=== PATIENT | female | born 1955 | race Caucasian/White ===

== ENCOUNTER 2017-06-26 16:52 | Emergency (ER) | payer OTHER ==
[~2017-06-26] VITALS: Ht 162.6 cm; Wt 122.5 kg
[~2017-06-26 16:52] MED LIST: ACETAMINOPHEN325 M1 PO; ASPIRIN325 PO; ATORVASTATIN CA20 MG PO; BROVANA15 MCG/2 M INH; CARDIZEM CD240 MG PO; CIPRO250 M1 PO; CITRATE OF MAG296 ML PO; DIOVAN40 MG PO; DUONEB 2.5-0.5 M3 ML INH; FISH OIL 1,2001 EAC4 PO; FLUZONE 2045 MCG/011; FUROSEMIDE 40 M40 M1 PO; HYDRALAZINE 10M10 MG PO; HYDROCODONE-AP1 EAC6 PO; HYDROXYZINE HCL25 M2 PO; KLOR-CON 1010 MEQ PO; LASIX 20 MG TAB20 MG PO; LASIX 80 MG TAB80 MG PO; LIPITOR 20 MG T20 M1; LIPITOR 20 MG T20 M1 PO; LISINOPRIL20 MG PO; LOPRESSOR25 PO; LOPRESSOR50 PO; MOBIC15 MG PO; NAPROSYN500 MG PO; NYQUIL D COLD295 ML PO; PEPCID20 MG PO; PLAVIX 300 MG300 MG PO; PNEUMOVAX25 MCG/0.5; POTASSIUM20 PO; PREDNISONE 20 M20 M1 PO; PULMICORT0.5 MG/22 INH; SINGULAIR 10 MG10 M1 PO; TOPROL XL25 MG PO; TOPROL XL50 MG PO; VERAPAMIL E.R240 M1 PO
[2017-06-26] MEDS ORDERED: SULFAMETHOXAZO1 EAC1 PO (16:59)
[2017-06-26] MEDS ORDERED: TOPROL XL100 MG PO (16:59)
[2017-06-26] MEDS ORDERED: CYCLOBENZAPRINE5 MG PO (19:04)
[2017-06-26] MEDS ORDERED: NORCO 5-325 TA1 EACH PO (19:04)
[2017-06-26 19:19] VITALS: BP 133/62
== END 2017-06-26 19:20 | disposition home or self-care (01) ==
LOC: M.ERS 16:52
DX: S20.212A Contusion of left front wall of thorax, initial encounter (principal); J44.9 Chronic obstructive pulmonary disease, unspecified; I10 Essential (primary) hypertension; E78.5 Hyperlipidemia, unspecified; I25.2 Old myocardial infarction; F17.210 Nicotine dependence, cigarettes, uncomplicated; Z88.1 Allergy status to other antibiotic agents; Z88.8 Allergy status to other drugs, medicaments and biological substances; V89.0XXA Person injured in unspecified motor-vehicle accident, nontraffic, initial encounter; Y93.89 Activity, other specified; Y92.89 Other specified places as the place of occurrence of the external cause; Y99.8 Other external cause status

== ENCOUNTER 2017-07-03 23:52 | Emergency (ER) | payer OTHER ==
[~2017-07-03] VITALS: Ht 162.6 cm; Wt 125.7 kg
[~2017-07-03 23:52] MED LIST changes: +CYCLOBENZAPRINE5 MG PO; +NORCO 5-325 TA1 EACH PO; +SULFAMETHOXAZO1 EAC1 PO; +TOPROL XL100 MG PO
[2017-07-04] MEDS ORDERED: HYDROCODONE-AP1 EAC6 PO (00:12)
[2017-07-04] MEDS ORDERED: CYCLOBENZAPRINE5 MG PO (00:12)
[2017-07-04] MEDS ORDERED: VOLTAREN GEL 1100 G2 TOP (00:12)
[2017-07-04 00:29] VITALS: BP 119/71
--- NOTE | 2017-07-04 14:38 | EKG ---
[place] [address] ELECTROCARDIOGRAM REPORT Name: DANNI POWERS Room: [facility]#: [id number] Admission: 07/03/17 Attend Phys: Discharge: 07/04/17 Date of : 55 Report #: [id number] THIS REPORT FOR: //name// [facility] ED Test Date: 2017-07-03 Test Time: 23:58:16 Pat Name: DANNI POWERS Department: Room: Gender: F Emergency Department Clinician: MATIAS : 1955 Requested By: Idania Chambers Order Number: [id number] Reading MD: Sonido Wells Measurements Intervals [place] Rate: 63 P: -22 MA: 169 QRS: 26 QRSD: 91 T: 51 QT: 389 QTc: 399 Interpretive Statements Sinus rhythm Anterior infarct, old, possible Baseline wander in lead(s) II Compared to ECG 03/03/2016 17:09:37 Myocardial infarct finding now present Atrial premature complex(es) no longer present Poor R-wave progression no longer present Electronically Signed On 07-04-2017 14:38:06 CDT by Sonido Wells [email or web address] <ELECTRONICALLY SIGNED> By: Sonido Wells MD, FACC 07/04/17 1438 [id number] [id number] Sonido Wells MD, [facility] /EPI
== END 2017-07-04 00:55 | disposition home or self-care (01) ==
LOC: M.ERS 23:52
DX: S29.012A Strain of muscle and tendon of back wall of thorax, initial encounter (principal); J44.9 Chronic obstructive pulmonary disease, unspecified; E78.5 Hyperlipidemia, unspecified; I10 Essential (primary) hypertension; I25.2 Old myocardial infarction; Z88.1 Allergy status to other antibiotic agents; Z88.8 Allergy status to other drugs, medicaments and biological substances; V89.2XXA Person injured in unspecified motor-vehicle accident, traffic, initial encounter; Y93.89 Activity, other specified; Y92.89 Other specified places as the place of occurrence of the external cause; Y99.8 Other external cause status

== ENCOUNTER 2019-02-28 18:23 | Emergency (ER) | payer OTHER ==
[~2019-02-28] VITALS: Ht 160 cm; Wt 123.4 kg
[~2019-02-28 18:23] MED LIST changes: +VOLTAREN GEL 1100 G2 TOP
[2019-02-28 20:12] VITALS: BP 146/78
== END 2019-02-28 20:14 | disposition home or self-care (01) ==
LOC: M.ERS 18:23
DX: S63.8X1A Sprain of other part of right wrist and hand, initial encounter (principal); J44.9 Chronic obstructive pulmonary disease, unspecified; E78.5 Hyperlipidemia, unspecified; I10 Essential (primary) hypertension; F17.210 Nicotine dependence, cigarettes, uncomplicated; Z90.710 Acquired absence of both cervix and uterus; Z98.51 Tubal ligation status; E66.9 Obesity, unspecified; Z68.42 Body mass index [BMI] 45.0-49.9, adult; Z88.1 Allergy status to other antibiotic agents; Z91.040 Latex allergy status; Z88.8 Allergy status to other drugs, medicaments and biological substances; W18.39XA Other fall on same level, initial encounter; Y93.89 Activity, other specified; Y92.89 Other specified places as the place of occurrence of the external cause; Y99.8 Other external cause status

== ENCOUNTER 2020-08-01 19:53 | Emergency (ER) | payer MEDICARE ==
[~2020-08-01] VITALS: Ht 165.1 cm; Wt 113.4 kg
[2020-08-01] MEDS ORDERED: PREDNISONE50 MG PO (21:10)
[2020-08-01] MEDS ORDERED: PROAIR HFA8.5 GM INH (21:10)
[2020-08-01 21:20] VITALS: BP 199/93
== END 2020-08-01 21:20 | disposition home or self-care (01) ==
LOC: M.ERS 19:53
DX: J44.1 Chronic obstructive pulmonary disease with (acute) exacerbation (principal); Z20.822 Contact with and (suspected) exposure to COVID-19; I10 Essential (primary) hypertension; E66.9 Obesity, unspecified; I25.2 Old myocardial infarction; F17.210 Nicotine dependence, cigarettes, uncomplicated; Z88.1 Allergy status to other antibiotic agents; Z91.040 Latex allergy status; Z79.82 Long term (current) use of aspirin; Z79.899 Other long term (current) drug therapy; Z98.890 Other specified postprocedural states

== ENCOUNTER → 2020-09-07 | Outpatient (CLI) | payer MEDICARE, BC ==
[~2020-09-07] MED LIST changes: +PREDNISONE50 MG PO; +PROAIR HFA8.5 GM INH
== END ==
LOC: M.RAD 10:45
PROVIDERS: ATTEND Internal Medicine
DX: Z12.31 Encounter for screening mammogram for malignant neoplasm of breast (principal); N64.89 Other specified disorders of breast

== ENCOUNTER → 2020-09-17 | Outpatient (CLI) | payer MEDICARE, BC | LOC: M.RAD 09-11 09:33 | PROVIDERS: ATTEND Internal Medicine | DX: N65.0 Deformity of reconstructed breast (principal); R92.8 Other abnormal and inconclusive findings on diagnostic imaging of breast ==

== ENCOUNTER → 2020-09-26 | Outpatient (CLI) | payer MEDICARE, BC ==
--- NOTE | 2020-09-28 11:08 | PATH ---
[address] [address] PATHOLOGY RPT PROCEDURE Name: DANNI PORTILLO Room: [facility]#: [id number] Admission: 09/26/20 Date of : 55 Discharge: Report #: [id number] Path Case #: [id number] [facility] Accession Number: [id number] . 01 Material submitted: . PART A: breast - LEFT BREAST MASS 2 OCLOCK 8CFN. Modifiers: left, 2:00, 8CFN PART B: breast - LEFT BREAST MASS 2 OCLOCK 8CFN. Modifiers: left, 2:00, 8CFN . 01 Clinical history: . LEFT BREAST MASS 2:00 8CFN 1.4 X 1.0 X 0.87 CM . 02 Diagnosis: A. Breast "left mass 2:00 8 cm from nipple", needle biopsy: - Fibrocystic changes including areas of fibrosis, usual ductal hyperplasia, adenosis, and cyst formation. - Intraluminal microcalcification. - Focal fat necrosis. - Negative for atypia and malignancy. . B. Breast "left mass 2:00 8 cm from nipple": - Minute fragments of benign breast tissue. - Negative for atypia and malignancy. (MLK/db; 09/27/2020) LBQ 09/28/2020 1012 Local . 02 Electronically signed: . Alexander Brown MD, Pathologist NPI- [id number] . 01 Gross description: . A. Received in formalin labeled "Danni Portillo and left breast biopsy 2:00". Received are multiple white-yellow fibroadipose breast cores ranging from 1.0-2.0 cm in length and 0.2-0.4 cm in diameter. The specimen is entirely submitted in cassettes A1 through A6. The specimen was collected 09/26/2020 at 0940 hours and placed in the formalin at 0947 hours. The specimen will be removed from formalin on 1140 hours. The specimen will be in formalin more than 6 hours and less than 72 hours. . B. Received in formalin labeled "Danni Portillo and left breast biopsy 2:00". Received are multiple fragments of a white-yellow fibroadipose breast tissue core ranging from 0.2-0.4 cm in length and 0.1 cm in diameter. The specimen is submitted entirely in cassettes B1 through B3. The specimen was collected 09/26/2020 and 0959 hours and placed in the formalin at 1000 hours. The specimen [place] [address] PATHOLOGY RPT PROCEDURE Name: DANNI PORTILLO Room: [facility]#: [id number] Admission: 09/26/20 Date of : 55 Discharge: Report #: [id number] Path Case #: [id number] on 1140 hours. The specimen will be in formalin more than 6 hours and less than 72 hours. ([facility]; 09/26/2020) BLJ/J 09/27/2020 1752 Local . 02 Pathologist provided ICD-10: N60.12, N60.32, N62 . 02 CPT . 783361, 096038 Specimen Comment: A courtesy copy of this report has been sent to [phone], [phone] Specimen Comment: [phone] Specimen Comment: Report sent to / DR BARFIELD Performed at: 01 [facility] [address], [place] [id number] MD Jhoan Lovett MD Phone: [phone] Performed at: 02 [facility] Ariella Lord, [place], [place] [id number] MD Sj Jones MD Phone: [phone]
== END ==
LOC: M.ULTRA 08:06
PROVIDERS: ATTEND Internal Medicine
DX: N63.20 Unspecified lump in the left breast, unspecified quadrant (principal); R92.8 Other abnormal and inconclusive findings on diagnostic imaging of breast

== ENCOUNTER → 2020-10-16 | Outpatient (CLI) | payer MEDICARE, BC | LOC: M.RAD 13:20 | PROVIDERS: ATTEND Internal Medicine | DX: R92.8 Other abnormal and inconclusive findings on diagnostic imaging of breast (principal) ==